=== PATIENT | male | born 1980 | race Caucasian/White ===

== ENCOUNTER 2016-10-10 06:23 | Day surgery (SDC) | payer BC ==
[2016-10-07 11:09] VITALS: BMI 28.1
[~2016-10-10 06:23] MED LIST: ACETAMINOPHEN TAB 500 MG TAB PO ONE; DEXAMETHASONE SOD PHOSPHATE 10 MG/ML 1 ML VIAL IV ONE; DEXAMETHASONE SOD PHOSPHATE 4 MG/ML 1 ML VIAL IV ONE; FAMOTIDINE 20 MG/2 ML VIAL IV ONE; HYDROmorphone 1 MG/ML 1 ML SYRINGE IVP PRN; LACTATED RINGERS 1,000 ML IV SCH; MIDAZOLAM 2 MG/2 ML VIAL IV PRN; ONDANSETRON 4 MG/2 ML VIAL IVP ONE; OXYMETAZOLINE 0.05% NASL SPRAY 15 ML NASAL ONE; Pre Op ABX Message 1 EACH MISC MISCELLANE ONE; SCOPOLAMINE 1.5MG/72HR PATCH TRANSDERM ONE
[2016-10-10] MEDS ORDERED: LIDOCAINE 1% 20 ML VIAL (10MG/ML) FOR IV START INTRADERMA ONE (07:08)
[2016-10-10 07:18] VITALS: RESP 16
[2016-10-10] MEDS ORDERED: MIDAZOLAM 2 MG/2 ML VIAL ONE (07:30)
[2016-10-10] MEDS ORDERED: PROPOFOL 10 MG/ML 20 ML VIAL IV ONE (07:30)
[2016-10-10] MEDS ORDERED: fentaNYL (PF) 50 MCG/ML 2 ML AMP ONE (07:30)
[2016-10-10] MEDS ORDERED: SUCCINYLCHOLINE CHLORIDE 100 MG/5 ML SYR IV ONE (07:30)
[2016-10-10] MEDS ORDERED: DEXAMETHASONE SOD PHOS (MDV) 100 MG/10 ML VIAL ONE (07:30)
[2016-10-10] MEDS ORDERED: LIDOCAINE 1% INJ 10MG/ML (20 ML MDV) ONE (07:30)
[2016-10-10] MEDS ORDERED: LIDOCAINE 1%-EPI 1:100,000 20 ML VIAL SQ ONE ×2 (08:00)
[2016-10-10] MEDS ORDERED: FLUORESCEIN STRIPS 1 MG STRIP MISCELLANE ONE (08:01)
[2016-10-10] MEDS ORDERED: EPINEPHrine 1 MG/ML (MDV) 30 ML VIAL TOPICAL ONE (08:02)
[2016-10-10 08:59] VITALS: TEMP 97.8
--- NOTE | 2016-10-10 09:29 | P.OP ---
Date of Procedure: 10/10/16 Preoperative Diagnosis: Chronic sinusitis with maxillary sinus polyps, chronic ethmoiditis sphenoid sinusitis and maxillary sinusitis Postoperative Diagnosis: Same Procedure(s) Performed: Bilateral functional endoscopic sinus surgery of the maxillary total ethmoid and sphenoid sinuses with removal of maxillary sinus polyps Anesthesia: MINEA Surgeon: Mari Barton Estimated Blood Loss (ml): 20 Pathology: other (Sinonasal) Condition: stable Disposition: PACU Indications for Procedure: Patient has had chronic sinus issues with constant discolored drainage and nasal obstruction anosmia etc. probes are persistent chronic infection was noted and he has failed medical therapy surgery was indicated. All risks, benefits, and alternative therapies were discussed in detail. Consent was obtained and all questions were answered. Operative Findings: Bilateral maxillary sinus polyps were noted along with mari pus seen in the maxillary ethmoid and sphenoid sinuses Description of Procedure: We then entered the nose with a 0 and 30 Angelo awais endoscope. Previous to this we did inject the lateral nasal wall and middle turbinate and uncinate process with lidocaine 1% with epinephrine 1 100,000. Approximately 10 minutes were allowed wait for full vasoconstrictive effects to take place. With use of a microdebrider and a pediatric backbiter, we took down the uncinate process bilaterally. We then opened the maxillary sinuses bilaterally. We utilized a microdebrider for this and entered the maxillary sinuses and removed diseased tissue. Polyps were removed from the maxillary sinuses This was done bilaterally. After the maxillary sinuses were opened and the diseased tissue was removed we entered the ethmoid bulla and with use of a microdebrider and up- biting Fady, we followed the fovea frontalis through the basal lamella and into the posterior ethmoid air cells and did a total ethmoidectomy. We removed the anterior ethmoid air cells with use of a microdebrider and up- biting boss. After all the anterior ethmoid air cells were removed we did the same in the posterior ethmoid. A total ethmoidectomy was completed in that fashion with removal of all the anterior and posterior ethmoid air cells and diseased tissue. All septations were removed for total ethmoidectomy Once the ethmoids cells were all taken down we then entered the sphenoid sinus medially and inferiorly underneath the inferior attachment of the superior turbinate. The sphenoid sinus was opened entered and diseased tissue was removed bilaterally. This was done with a microdebrider and [place]. To summarize sinuses were opened sinuses were explored and we remove diseased tissue from the sphenoid maxillary and frontal sinuses. Ethmoid sinuses were opened totally. xerogel was inserted and minimal bleeding was encountered. We reinspected the skull base there is no signs of any orbital penetration or signs of any intracranial penetration. The sugical site was reinspected after the xerogel was placed and no bleeding was seen.
[2016-10-10 10:42] VITALS: BP 140/81; PULSE 75
== END 2016-10-10 10:40 | disposition home or self-care (01) ==
LOC: OR 06:23
PROVIDERS: ATTEND Otolaryngology
DX: J32.2 Chronic ethmoidal sinusitis (principal); J32.3 Chronic sphenoidal sinusitis; J32.0 Chronic maxillary sinusitis; J33.8 Other polyp of sinus; I10 Essential (primary) hypertension; E78.5 Hyperlipidemia, unspecified; Z79.899 Other long term (current) drug therapy
CPT/HCPCS: 88305; 31267; 31255; 31288; J0171; J2250; J1100 ×2; J2405; J2001; J3010; J0330; J2704

== ENCOUNTER 2017-02-19 10:44 | Inpatient (IN) | payer BC ==
--- NOTE | 2017-02-19 10:41 | CT ---
EXAMINATION TYPE: CT abdomen pelvis wo con DATE OF EXAM: 02/19/2017 HISTORY: Patient complains of generalized abdominal pain, bloating, and possibly constipation. Abdomi nal pain and bloating per order. CT DLP: 496.3 mGycm. Automated Exposure Control for Dose Reduction was Utilized. TECHNIQUE: CT scan of the abdomen and pelvis is performed without oral or IV contrast. COMPARISON: CT abdomen and pelvis September 21, 2011. FINDINGS: Within the limitations of a non-contrast study, the following observations are made. LUNG BASES: No significant abnormality is appreciated. LIVER/GB: No significant abnormality is appreciated. PANCREAS: No significant abnormality is seen. SPLEEN: Spleen is upper limits of normal in size measuring 13.5 cm on long axis on coronal image 51. ADRENALS: No significant abnormality is seen. KIDNEYS: No renal stones or hydronephrosis is seen bilaterally. BOWEL: No suspicious small or large bowel dilatation is seen. There are few diverticula scattered thr oughout the sigmoid colon. There is moderate to severe ill-defined fluid and inflammatory change invo lving the proximal sigmoid colon in the lower abdomen just left of midline. There is extraluminal air noted. There is air-fluid level in thin-walled fluid collection measuring 2.4 x 2.3 cm on axial imag e 90 suspicious for developing abscess. Some foci of free air adjacent to this within mesenteric infl ammation is noted. Sigmoid colonic wall is thickened at this level inferior to this. Appendix is not dilated extending from cecum towards the midline with tip near level of the inflammation along right superior margin. GENITAL ORGANS: No gross abnormality seen. LYMPH NODES: No greater than 1cm abdominal or pelvic lymph nodes are appreciated. OSSEOUS STRUCTURES: No significant abnormality is seen. OTHER: No significant additional abnormality is seen. IMPRESSION: 1. Severe proximal sigmoid colitis probable acute diverticulitis in the lower abdomen just left of mi dline, extraluminal air is noted consistent with contained perforation as this does not extend outsid e inflammatory change. There is developing abscess suspected. Results communicated to ordering physician via telephone at time of dictation. Patient instructed to go to emergency room for further management. A Document Only message has been documented for Shane Fuentes DO in the [employer] system on 02/19/2017 10:34 AM, Message ID [id number].
[2017-02-19] MEDS ORDERED: PIPERACILLIN-TAZOBACTAM 3.375 GM in DEXTROSE/WATER 1 50ML.BAG IVPB STA (11:05)
[2017-02-19] MEDS ORDERED: HYDROmorphone 1 MG/ML 1 ML SYRINGE IVP STA (11:12)
[2017-02-19] MEDS ORDERED: ONDANSETRON 4 MG/2 ML VIAL IVP STA (11:12)
[2017-02-19] MEDS ORDERED: SODIUM CHLORIDE 0.9% 500 ML IV STA (11:12)
[2017-02-19] MEDS ORDERED: SODIUM CHLORIDE 0.9% 1,000 ML IV ONE (11:19)
--- NOTE | 2017-02-19 11:19 | ED ---
General Adult HPI - General Chief complaint: Abdominal Pain Time Seen by Provider: 02/19/17 10:55 Source: patient, RN notes reviewed Mode of arrival: ambulatory Limitations: no limitations - History of Present Illness Initial comments: Male presents emergency department with past medical history significant for diabetes and colitis. Patient states he started having lower abdominal pain more the left than the right on Friday and the pain is gotten progressively worse. Patient's primary medical care doctor ordered a CAT scan a CAT scan was done here [facility] which showed diverticulitis as well as pneumoperitoneum which looks as though it is being walled off and is a early abscess. I spoke with Dr. Daniels he agrees to see the patient. I will consult Dr. Barbour at this time because she is bonding equipment operator for Dr. Daniels. Patient denies any vomiting or nausea. Patient denies any diarrhea. Patient denies any fevers or chills. - Related Data Home Medications Medication Instructions Recorded Confirmed amLODIPine [Norvasc] 10 mg PO HS 01/25/15 02/19/17 Atorvastatin [Lipitor] 10 mg PO HS 10/07/16 02/19/17 Previous Rx's Medication Instructions Recorded Hydrocodone/Acetaminophen [[place] 1 - 2 each PO Q6HR PRN #50 tab 10/10/16 5-325] Allergies Allergy/AdvReac Type Severity Reaction Status Date / Time No Known Allergies Allergy Verified 02/19/17 10:56 Review of Systems ROS Statement: Those systems with pertinent positive or pertinent negative responses have been documented in the HPI. ROS Other: All systems not noted in ROS Statement are negative. Past Medical History Past Medical History: Hyperlipidemia, Hypertension Additional Past Medical History / Comment(s): diverticulitis History of Any Multi-Drug Resistant Organisms: None Reported Past Surgical History: Hernia Repair Additional Past Surgical History / Comment(s): LT ING. HERNIA REPAIR, nasal surgery. Past Anesthesia/Blood Transfusion Reactions: No Reported Reaction Past Psychological History: No Psychological Hx Reported Smoking Status: Never smoker Past Alcohol Use History: Occasional Past Drug Use History: None Reported - Past Family History Mother Family Medical History: No Reported History General Exam - General Exam Comments Initial Comments: GENERAL: Patient is well-developed and well-nourished. Patient is nontoxic and well- hydrated and is in mild distress. ENT: Neck is soft and supple. No significant lymphadenopathy is noted. Oropharynx is clear. Moist mucous membranes. Neck has full range of motion without eliciting any pain. EYES: The sclera were anicteric and conjunctiva were pink and moist. Extraocular movements were intact and pupils were equal round and reactive to light. Eyelids were unremarkable. PULMONARY: Unlabored respirations. Good breath sounds bilaterally. No audible rales rhonchi or wheezing was noted. CARDIOVASCULAR: There is a regular rate and rhythm without any murmurs gallops or rubs. ABDOMEN: Patient is tender across the lower abdomen both right and left lower quadrant. Patient has no rebound or guarding. SKIN: Skin is clear with no lesions or rashes and otherwise unremarkable. NEUROLOGIC: Patient is alert and oriented x3. Cranial nerves II through XII are grossly intact. Motor and sensory are also intact. Normal speech, volume and content. Symmetrical smile. MUSCULOSKELETAL: Normal extremities with adequate strength and full range of motion. No lower extremity swelling or edema. No calf tenderness. LYMPHATICS: No significant lymphadenopathy is noted PSYCHIATRIC: Normal psychiatric evaluation. Normal interpersonal interactions appears functionally intact in deals appropriately with others. No signs of depression. No signs of anxiety. Limitations: no limitations Course Vital Signs 02/19/17 10:52 Temperature 98.5 F Pulse Rate 73 Respiratory 16 Rate Blood Pressure 159/93 O2 Sat by Pulse 97 Oximetry Medical Decision Making - Medical Decision Making CAT scan shows diverticulitis with perforation and early abscess formation. I spoke with Dr. Branham he wanted the patient admitted with consult to Dr. Barbour. Disposition Clinical Impression: Diverticulitis of intestine with perforation and abscess Disposition: ADMITTED IP TO THIS HOSP Referrals: Shane Fuentes DO [Primary Care Provider] - 1-2 days Time of Disposition: 11:19
[2017-02-19] MEDS ORDERED: ONDANSETRON 4 MG/2 ML VIAL IVP PRN (11:21)
[2017-02-19 11:33] LABS: Basophils % (A) 0 %; CH 30.3; CHCM 35.2; Eosinophils # (A) 0.1 k/uL (0-0.7); Eosinophils % (A) 1 %; HCT 46.2 % (39.0-53.0); HDW 2.86; HGB 15.7 gm/dL (13.0-17.5); Luc # (Auto) 0.14; Luc % (Auto) 2; Lymphocytes % (A) 10 %; MCH 29.3 pg (25.0-35.0); MCV 86.4 fL (80.0-100.0); Mean Platelet Volume 6.6; Monocytes # (A) 0.8 k/uL (0-1.0); Monocytes % (A) 8 %; Neutrophils # (A) 7.5 k/uL (1.3-7.7); Neutrophils % (A) 79 %; RBC 5.35 m/uL (4.30-5.90); RDW 13.1 % (11.5-15.5); WBC 9.4 k/uL (3.8-10.6); WBC (Perox) 8.86
[2017-02-19 11:47] LABS: ALT 29 U/L (21-72); AST 23 U/L (17-59); Alkaline Phosphatase 114 U/L (38-126); Amylase 43 U/L (30-110); Anion Gap 14 mmol/L; Blood Urea Nitrogen 10 mg/dL (9-20); Calcium 9.8 mg/dL (8.4-10.2); Carbon Dioxide 28 mmol/L (22-30); Chloride 99 mmol/L (98-107); Glucose 94 mg/dL (74-99); Non-African American GFR(MDRD) >60 (>60 ml/min/1.73 sqM); Sodium 141 mmol/L (137-145); Total Bilirubin 1.1 mg/dL (0.2-1.3); Total Protein 7.8 g/dL (6.3-8.2)
[2017-02-19 13:04] VITALS: BMI 28.9
[2017-02-19] MEDS: HYDROmorphone 1 MG/ML 1 ML SYRINGE IVP PRN ×2 (15:17→20:05)
[2017-02-19] MEDS: PIPERACILLIN-TAZOBACTAM 3.375 GM in DEXTROSE/WATER 1 50ML.BAG IVPB SCH (16:59)
--- NOTE | 2017-02-19 18:56 | P.GSCN ---
History of Present Illness Consult date: 02/19/17 Reason for Consult: Diverticulitis with perforation History of present illness: The patient will man who began having some abdominal pain on Friday. It got a little bit better. He was able to go to work on Friday. It got progressively worse through the day. He went into Dr. Fuentes's office on Friday and had lab drawn and his white count was normal. He is sent in today for a computed tomography scan which showed diverticulitis with a perforation. He does have a history of diverticulitis about 5 years ago. He was treated nonsurgically. His temperature was up to 100.2 at home. No nausea or vomiting. He Feels Better this afternoon. Review of Systems All systems: negative Past Medical History Past Medical History: Hyperlipidemia, Hypertension Additional Past Medical History / Comment(s): diverticulitis History of Any Multi-Drug Resistant Organisms: None Reported Past Surgical History: Hernia Repair Additional Past Surgical History / Comment(s): LT ING. HERNIA REPAIR, nasal surgery. Past Anesthesia/Blood Transfusion Reactions: No Reported Reaction Past Psychological History: No Psychological Hx Reported Smoking Status: Never smoker - Past Family History Mother Family Medical History: No Reported History Medications and Allergies Home Medications Medication Instructions Recorded Confirmed Type amLODIPine [Norvasc] 10 mg PO HS 01/25/15 02/19/17 History Atorvastatin [Lipitor] 10 mg PO HS 10/07/16 02/19/17 History Allergies Allergy/AdvReac Type Severity Reaction Status Date / Time No Known Allergies Allergy Verified 02/19/17 11:18 Surgical - Exam Osteopathic Statement: *. No significant issues noted on an osteopathic structural exam other than those noted in the History and Physical/Consult. Vital Signs Temp Pulse Resp BP Pulse Ox 98.5 F 73 16 159/93 97 02/19/17 10:52 02/19/17 10:52 02/19/17 10:52 02/19/17 10:52 02/19/17 10:52 - General well developed, well nourished, no distress - Eyes normal ocular movement - ENT normal mucosa, no hearing loss - Neck trachea midline - Respiratory normal expansion, normal respiratory effort, clear to auscultation - Cardiovascular Rhythm: regular - Abdomen Abdomen: soft, tender (Mild left lower quadrant and suprapubic without guarding or rebound), bowel sounds (Normal active) Results - Labs 02/19/17 11:05 02/19/17 11:05 Diabetes panel 02/19/17 Range/Units 11:05 Sodium 141 (137-145) mmol/L Potassium 4.0 (3.5-5.1) mmol/L Chloride 99 (98-107) mmol/L Carbon Dioxide 28 (22-30) mmol/L BUN 10 (9-20) mg/dL Creatinine 0.76 (0.66-1.25) mg/dL Glucose 94 (74-99) mg/dL Calcium 9.8 (8.4-10.2) mg/dL AST 23 (17-59) U/L ALT 29 (21-72) U/L Alkaline Phosphatase 114 (38-126) U/L Total Protein 7.8 (6.3-8.2) g/dL Albumin 4.6 (3.5-5.0) g/dL Calcium panel 02/19/17 Range/Units 11:05 Calcium 9.8 (8.4-10.2) mg/dL Albumin 4.6 (3.5-5.0) g/dL Pituitary panel 02/19/17 Range/Units 11:05 Sodium 141 (137-145) mmol/L Potassium 4.0 (3.5-5.1) mmol/L Chloride 99 (98-107) mmol/L Carbon Dioxide 28 (22-30) mmol/L BUN 10 (9-20) mg/dL Creatinine 0.76 (0.66-1.25) mg/dL Glucose 94 (74-99) mg/dL Calcium 9.8 (8.4-10.2) mg/dL Adrenal panel 02/19/17 Range/Units 11:05 Sodium 141 (137-145) mmol/L Potassium 4.0 (3.5-5.1) mmol/L Chloride 99 (98-107) mmol/L Carbon Dioxide 28 (22-30) mmol/L BUN 10 (9-20) mg/dL Creatinine 0.76 (0.66-1.25) mg/dL Glucose 94 (74-99) mg/dL Calcium 9.8 (8.4-10.2) mg/dL Total Bilirubin 1.1 (0.2-1.3) mg/dL AST 23 (17-59) U/L ALT 29 (21-72) U/L Alkaline Phosphatase 114 (38-126) U/L Total Protein 7.8 (6.3-8.2) g/dL Albumin 4.6 (3.5-5.0) g/dL - Imaging CT scan - abdomen: report reviewed, image reviewed Assessment and Plan (1) Diverticulitis of colon with perforation Status: Acute Plan: He has a contained perforation. No Drainable abscess is seen on computed tomography scan. His abdominal exam is relatively benign. We'll make him nothing by mouth. IV antibiotics and hydration. Serial exams. We'll likely repeat the computed tomography scan in 2-3 days if he continues to do well to make sure he hasn't developed a abscess. Further recommendations to follow.
[2017-02-19] MEDS ORDERED: ACETAMINOPHEN TAB 500 MG TAB PO PRN (23:01)
[2017-02-19] MEDS: SODIUM CHLORIDE 0.9% 1,000 ML IV SCH (23:28)
[2017-02-20] MEDS: PIPERACILLIN-TAZOBACTAM 3.375 GM in DEXTROSE/WATER 1 50ML.BAG IVPB SCH ×3 (02:06→18:11)
[2017-02-20] MEDS: HYDROmorphone 1 MG/ML 1 ML SYRINGE IVP PRN ×5 (02:22→21:55)
[2017-02-20 08:38] LABS: CHCM 33.7; HCT 45.3 % (39.0-53.0); HDW 2.92; HGB 14.7 gm/dL (13.0-17.5); MCH 28.9 pg (25.0-35.0); MCHC 32.4 g/dL (31.0-37.0); MCV 89.3 fL (80.0-100.0); Mean Platelet Volume 6.4; RBC 5.08 m/uL (4.30-5.90); RDW 13.1 % (11.5-15.5); WBC 8.3 k/uL (3.8-10.6)
[2017-02-20 08:54] LABS: Anion Gap 15 mmol/L; Blood Urea Nitrogen 14 mg/dL (9-20); Calcium 9.2 mg/dL (8.4-10.2); Carbon Dioxide 24 mmol/L (22-30); Chloride 104 mmol/L (98-107); Glucose 78 mg/dL (74-99); Non-African American GFR(MDRD) >60 (>60 ml/min/1.73 sqM); Potassium 3.8 mmol/L (3.5-5.1); Sodium 143 mmol/L (137-145)
--- NOTE | 2017-02-20 10:24 | P.PN ---
Subjective The patient's feeling okay today. No nausea or vomiting. Pain is controlled. Objective - Vital Signs Vital signs: Vital Signs Temp 96.9 F L 02/20/17 07:00 Pulse 77 02/20/17 08:00 Resp 20 02/20/17 08:00 BP 135/94 02/20/17 07:00 Pulse Ox 96 02/20/17 07:00 Intake & Output 02/19/17 02/20/17 02/20/17 18:59 06:59 18:59 Intake Total 400 0 Balance 400 0 Weight 86.4 kg Intake: Amount of Fluid Infused ( 100 ml) Intake, IV Titration 300 Amount Sodium Chloride 0.9% 1, 300 000 ml @ 100 mls/hr IV . Q10H ONE Rx#:[id number] Oral 0 Other: Voiding Method Toilet Toilet # Voids 2 # Bowel Movements 0 - Constitutional General appearance: Present: cooperative, no acute distress - Gastrointestinal General gastrointestinal: Present: normal bowel sounds, soft, tenderness (Mild left lower quadrant and suprapubic) - Labs CBC & Chem 7: 02/20/17 08:01 02/20/17 08:01 Assessment and Plan (1) Diverticulitis of colon with perforation Status: Acute Plan: At present we'll maintain the patient nothing by mouth except ice chips and popsicles. Continue IV antibiotics. Continue DVT and ulcer prophylaxis. Likely he'll need a interval CT scan over the weekend to make sure that the inflammatory changes improving and there is no interval development of a large abscess.
[2017-02-20] MEDS: SODIUM CHLORIDE 0.9% 1,000 ML IV SCH ×2 (13:28→21:58)
[2017-02-21] MEDS: PIPERACILLIN-TAZOBACTAM 3.375 GM in DEXTROSE/WATER 1 50ML.BAG IVPB SCH ×3 (01:35→17:45)
[2017-02-21] MEDS: HYDROmorphone 1 MG/ML 1 ML SYRINGE IVP PRN ×2 (02:51→10:19)
[2017-02-21] MEDS: SODIUM CHLORIDE 0.9% 1,000 ML IV SCH ×2 (06:19→16:29)
--- NOTE | 2017-02-21 08:33 | P.PN ---
Progress Note - Text The patient was being covered by Dr. Barbour for the last 2 days. The patient states feels better today. His pain is decreased. He has some mild left lower quadrant pain. On exam is lesser stable. His abdomen is soft there is minimal tenderness left lower quadrant. There is no rebound or guarding. The patient will have his diet increased to full diet. He'll be reevaluated in a.m. I discussed with him the risk of diverticular perforation.
[2017-02-21] MEDS: HYDROcodone/APAP 7.5-325MG 1 EACH TAB PO PRN ×3 (12:56→22:52)
[2017-02-22] MEDS: SODIUM CHLORIDE 0.9% 1,000 ML IV SCH ×3 (01:39→20:37)
[2017-02-22] MEDS: PIPERACILLIN-TAZOBACTAM 3.375 GM in DEXTROSE/WATER 1 50ML.BAG IVPB SCH ×3 (01:41→17:31)
[2017-02-22] MEDS: HYDROcodone/APAP 7.5-325MG 1 EACH TAB PO PRN (03:56)
[2017-02-22] MEDS: HYDROmorphone 1 MG/ML 1 ML SYRINGE IVP PRN ×6 (05:05→20:41)
--- NOTE | 2017-02-22 09:24 | P.PN ---
Progress Note - Text The patient states he feels slightly better. He saw some mild pain left lower quadrant. He is tolerating his full liquid diet. On exam his vital signs are stable. His abdomen soft. There is mild left lower quadrant tenderness. Resolving acute diverticulitis. Patient is improving. Hopefully be discharged home tomorrow.
[2017-02-22] MEDS ORDERED: DOCUSATE 100 MG CAP PO SCH (09:30)
--- NOTE | 2017-02-22 19:11 | PN ---
DATE OF SERVICE: 02/22/2017 I am covering for Dr. Fuentes. This 36-year-old gentleman was admitted with features of severe proximal sigmoid colitis with acute diverticulitis as well as contained perforation is on IV antibiotics. Surgery is following the patient closely. No chest pain. No palpitations. No fever. Abdomen is also feeling a bit better according to him. On exam, alert and oriented x3. Pulse 69, blood pressure 158/83, respiration 18, temperature 99.9. Pulse ox 97% on room air. HEENT: Conjunctivae normal. NECK: No jugular venous distention. CARDIOVASCULAR: S1, S2 muffled. RESPIRATORY: Breath sounds diminished at the bases. No rhonchi. No crackles. ABDOMEN: Soft, mild diffuse discomfort. No guarding. No rigidity. No mass palpable. Legs: No edema. No swelling. Central nervous system: No focal deficits. LABS: CBC, BMP within normal limits. 1. ASSESSMENT: Acute sigmoid diverticulitis with contained perforation on IV antibiotics. 2. History of hypertension. 3. History of hyperlipidemia. 4. History of diverticulitis. 5. History of left inguinal hernia repair. RECOMMENDATIONS AND DISCUSSION: This 36 -year-old gentleman who presented with multiple complex medical issues. We will monitor the patient closely. Continue the current management. Continue symptomatic treatment. The patient is on broad spectrum IV antibiotics. We will closely follow with surgery and continue to monitor. DVT prophylaxis. Further recommendations to follow.
[2017-02-22] MEDS: HEPARIN SODIUM,PORCINE 5,000 UNIT/ML 1 ML VIAL SQ SCH (20:38)
[2017-02-22] MEDS ORDERED: ATORVASTATIN 10 MG TAB PO SCH (21:00)
[2017-02-22] MEDS ORDERED: amLODIPine 10 MG TAB PO SCH (21:00)
[2017-02-23] MEDS: PIPERACILLIN-TAZOBACTAM 3.375 GM in DEXTROSE/WATER 1 50ML.BAG IVPB SCH ×2 (01:27→10:31)
[2017-02-23 08:10] VITALS: BP 137/83; PULSE 70; RESP 18; TEMP 97.7
[2017-02-23] MEDS: HEPARIN SODIUM,PORCINE 5,000 UNIT/ML 1 ML VIAL SQ SCH (08:25)
[2017-02-23] MEDS: SODIUM CHLORIDE 0.9% 1,000 ML IV SCH (08:25)
--- NOTE | 2017-02-23 12:45 | P.DS ---
Providers Date of admission: 02/19/17 11:19 Expected date of discharge: 02/23/17 Attending physician: Shane Fuentes Consults: 02/19/17 11:19 Consult Physician Urgent Consulting Provider: Soy Daniels Consult Reason/Comments: Diverticulitis with perforation and abscess Do you want consulting provider notified?: Already Contacted Primary care physician: Shane Fuentes [facility] Course: This is a 36-year-old male who was admitted to the hospital for acute diverticulitis with perforation. Patient was treated conservatively. He received IV antibiotics. Patient proved over his hospitalization. Please see chart for details. Patient Condition at Discharge: Good Plan - Discharge Summary New Discharge Prescriptions: New Docusate [Colace] 100 mg PO BID #20 capsule HYDROcodone/APAP 7.5-325MG [[place] 7.5] 1 each PO Q4H PRN #60 tab PRN Reason: Pain Levofloxacin [Levaquin] 500 mg PO DAILY #14 tab No Action amLODIPine [Norvasc] 10 mg PO HS Atorvastatin [Lipitor] 10 mg PO HS Discharge Medication List amLODIPine [Norvasc] 10 mg PO HS 01/25/15 [History] Atorvastatin [Lipitor] 10 mg PO HS 10/07/16 [History] Docusate [Colace] 100 mg PO BID #20 capsule 02/23/17 [Rx] HYDROcodone/APAP 7.5-325MG [[place] 7.5] 1 each PO Q4H PRN #60 tab 02/23/17 [Rx] Levofloxacin [Levaquin] 500 mg PO DAILY #14 tab 02/23/17 [Rx] Follow up Appointment(s)/Referral(s): Shane Fuentes DO [Primary Care Provider] - 1-2 days Soy Daniels MD [STAFF PHYSICIAN] - 1 Week Patient Instructions/Handouts: Diverticulitis (DC)
--- NOTE | 2017-02-24 12:29 | DS ---
DATE OF ADMISSION: 02/19/2017 DATE OF DISCHARGE: 02/23/2017 DATE OF SERVICE: 02/23/2017 FINAL DIAGNOSES: 1. Acute sigmoid diverticulitis with contained perforation on IV antibiotics. 2. Hypertension. 3. History of hyperlipidemia. 4. History of diverticulitis. 5. History of inguinal hernia repair. DISCHARGE DISPOSITION: The patient will be discharged in a stable condition with guarded prognosis. Dr. Daniels cleared the patient for discharge. HISTORY OF PRESENT ILLNESS: This is a 36-year-old gentleman with a past medical history of multiple medical problems being followed by Dr. Fuentes in the outpatient setting, admitted with acute sigmoid diverticulitis and contained perforation due to IV antibiotics. Dr. Daniels saw the patient and recommended discharge. On exam, vitals are stable. CARDIOVASCULAR SYSTEM: S1, S2. ABDOMEN: Soft. NERVOUS SYSTEM: No focal deficits. Discharge advice: 1. Diet is cardiac. 2. Activity limited until followup. 3. Follow up with Dr. Fuentes in 1 to 2 days. 4. Follow up with Dr. Daniels as advised. Medications will be: 1. Norvasc.10 mg q.h.s. 2. Lipitor 10 mg q.h.s. 3. Colace 100 mg b.i.d.. 4. [place] 7.5 mg. 5. Levaquin 500 mg p.o. daily for 14 days.
== END 2017-02-23 13:04 | disposition home or self-care (01) | DRG 392 ==
LOC: EC 10:44 → 4MS4W 11:19
PROVIDERS: ADMIT Family Medicine; ATTEND Family Medicine
DX: K57.20 Diverticulitis of large intestine with perforation and abscess without bleeding (principal); I10 Essential (primary) hypertension; E78.5 Hyperlipidemia, unspecified; Z79.899 Other long term (current) drug therapy
CPT/HCPCS: 36415; 74176; 80048; 80053; 82150; 83690; 85025; 85027; 96365; 96375; 99285

== ENCOUNTER 2017-04-02 12:28 | Day surgery (SDC) | payer BC ==
[2017-03-27 09:40] VITALS: BMI 28.1
[~2017-04-02 12:28] MED LIST changes: -ACETAMINOPHEN TAB 500 MG TAB PO ONE; -DEXAMETHASONE SOD PHOSPHATE 10 MG/ML 1 ML VIAL IV ONE; -DEXAMETHASONE SOD PHOSPHATE 4 MG/ML 1 ML VIAL IV ONE; -FAMOTIDINE 20 MG/2 ML VIAL IV ONE; -HYDROmorphone 1 MG/ML 1 ML SYRINGE IVP PRN; -LACTATED RINGERS 1,000 ML IV SCH; +LIDOCAINE 1% 20 ML VIAL (10MG/ML) FOR IV START INTRADERMA PRN; -MIDAZOLAM 2 MG/2 ML VIAL IV PRN; -ONDANSETRON 4 MG/2 ML VIAL IVP ONE; -OXYMETAZOLINE 0.05% NASL SPRAY 15 ML NASAL ONE; -Pre Op ABX Message 1 EACH MISC MISCELLANE ONE; -SCOPOLAMINE 1.5MG/72HR PATCH TRANSDERM ONE
[2017-04-02 13:17] VITALS: RESP 16; TEMP 98.3
[2017-04-02] MEDS: LACTATED RINGERS 1,000 ML IV SCH ×2 (13:22→14:54)
[2017-04-02] MEDS ORDERED: PROPOFOL 10 MG/ML 20 ML VIAL IV ONE (14:55)
--- NOTE | 2017-04-02 15:03 | P.GSHP ---
History of Present Illness H&P Date: 04/02/17 Chief Complaint: History of diverticulitis and abscess This a 36-year-old male with history of diverticulitis. Patient had a microperforation with abscess. He presents today for colonoscopy. Past Medical History Past Medical History: Hyperlipidemia, Hypertension Additional Past Medical History / Comment(s): diverticulitis History of Any Multi-Drug Resistant Organisms: None Reported Past Surgical History: Hernia Repair Additional Past Surgical History / Comment(s): nasal surgery. Past Anesthesia/Blood Transfusion Reactions: No Reported Reaction Smoking Status: Never smoker - Past Family History Mother Family Medical History: No Reported History Medications and Allergies Home Medications Medication Instructions Recorded Confirmed Type amLODIPine [Norvasc] 10 mg PO HS 01/25/15 04/02/17 History Atorvastatin [Lipitor] 10 mg PO HS 10/07/16 04/02/17 History Allergies Allergy/AdvReac Type Severity Reaction Status Date / Time No Known Allergies Allergy Verified 04/02/17 13:07 Surgical - Exam Vital Signs Temp Pulse Resp BP Pulse Ox 98.3 F 46 L 16 131/83 96 04/02/17 13:15 04/02/17 13:15 04/02/17 13:15 04/02/17 13:15 04/02/17 13:15 - General well developed, no distress - Eyes PERRL - ENT normal pinna - Neck no masses - Respiratory normal expansion - Cardiovascular Rhythm: regular - Abdomen Abdomen: soft, non tender Assessment and Plan Plan: History of perforated diverticulas. We'll perform colonoscopy.
--- NOTE | 2017-04-02 15:15 | P.OP ---
Date of Procedure: 04/02/17 Preoperative Diagnosis: Diverticulitis Postoperative Diagnosis: Diverticulitis Procedure(s) Performed: Colonoscopy Implants: Anesthesia: MAC Surgeon: Soy Daniels Pathology: other (Sigmoid colon) Condition: stable Disposition: PACU Indications for Procedure: Operative Findings: Description of Procedure: The patient's placed on the endoscopy table lateral position. He received IV sedation. Digital rectal exam was performed which revealed no abnormalities. The prostate was symmetric without nodules. The flexible colonoscope was then placed patient anus and passed throughout the entire colon. The ileocecal valve lesions. The cecum, ascending and transverse colon appeared normal. The descending colon appeared normal. In the sigmoid colon there is obvious diverticular changes with evidence of mucosal inflammation. A biopsies performed. Scope was then brought back the rectum and this appeared normal. Scope was withdrawn for patient.
[2017-04-02 15:33] VITALS: BP 121/72; PULSE 46
== END 2017-04-02 15:59 | disposition home or self-care (01) ==
LOC: ORWHC2ENDO 12:28
PROVIDERS: ATTEND Surgery
DX: K57.32 Diverticulitis of large intestine without perforation or abscess without bleeding (principal); E78.5 Hyperlipidemia, unspecified; I10 Essential (primary) hypertension; Z79.899 Other long term (current) drug therapy
CPT/HCPCS: 88305; 45380; J2704

== ENCOUNTER → 2017-04-25 | Outpatient (CLI) | payer BC ==
[2017-04-25 08:11] LABS: Basophils % (A) 0 %; CH 30.7; CHCM 34.7; Eosinophils # (A) 0.1 k/uL (0-0.7); Eosinophils % (A) 2 %; HDW 2.84; HGB 15.7 gm/dL (13.0-17.5); Luc % (Auto) 2; Lymphocytes # (A) 1.7 k/uL (1.0-4.8); Lymphocytes % (A) 41 %; MCH 29.1 pg (25.0-35.0); MCHC 32.8 g/dL (31.0-37.0); MCV 88.8 fL (80.0-100.0); Monocytes # (A) 0.3 k/uL (0-1.0); Monocytes % (A) 8 %; Neutrophils % (A) 47 %; RBC 5.41 m/uL (4.30-5.90); WBC 4.2 k/uL (3.8-10.6); WBC (Perox) 4.09
[2017-04-25 08:39] LABS: Anion Gap 11 mmol/L; Carbon Dioxide 27 mmol/L (22-30); Chloride 106 mmol/L (98-107); Sodium 144 mmol/L (137-145)
[2017-04-25 08:48] LABS: EKG EKG PERFORMED
== END | disposition home or self-care (01) ==
LOC: LABPAT 07:32
PROVIDERS: ATTEND Anesthesiology
DX: Z01.810 Encounter for preprocedural cardiovascular examination (principal); Z01.812 Encounter for preprocedural laboratory examination
CPT/HCPCS: 80051; 85025; 86850; 86900; 86901; 93005